=== PATIENT | female | born 1995 | race Two or more races ===

== ENCOUNTER 2024-06-08 05:40 | Day surgery (SDC) | payer OTHER, SELFPAY ==
[2024-06-07 15:03] VITALS: BMI 30.2
[2024-06-07 15:41] LABS: Basophils # (Auto) 0.1 Thou/mm3 (0.0-0.2); Basophils % (Auto) 1 % (0-2.5); Eosinophils # (Auto) 0.3 Thou/mm3 (0.0-0.5); Eosinophils % (Auto) 2 % (0-10); Hematocrit 36.2 % (36.0-46.0); Hemoglobin 11.6 g/dL (12.0-16.0); Immature Granulocytes % (Auto) 0 % (0-0); Immature Granulocytes Auto 0.03 Thou/mm3 (0.00-0.00); Lymphocytes # (Auto) 2.8 Thou/mm3 (1.0-4.8); Lymphocytes % (Auto) 28 % (10-50); Mean Corpuscular Hemoglobin 24.6 pg (25.0-35.0); Mean Corpuscular Volume 77 fL (80-100); Monocytes # (Auto) 0.6 Thou/mm3 (0.0-0.8); Monocytes % (Auto) 6 % (0-12); Neutrophils # (Auto) 6.5 Thou/mm3 (1.8-7.7); Neutrophils % (Auto) 63 % (37-80); Nucleated Red Blood Cell % 0 /100 WBC (0); Platelet Count 373 Thou/mm3 (140-440); RDW Standard Deviation 41.6 fL (36.4-46.3); Red Blood Count 4.72 Miln/mm3 (4.00-5.20); White Blood Count 10.3 Thou/mm3 (3.6-11.0)
[2024-06-07 15:51] LABS: HCG,Qualitative Serum Negative
[2024-06-07 15:57] LABS: HIV (1&2) Antibody Rapid Non-Reactive
[2024-06-07 16:43] LABS: Hepatitis A Antibody IgM Non Reactive (Non React); Hepatitis B Core Antibody IgM Non Reactive (Non React); Hepatitis B Surface Antigen Non Reactive (Non React); Hepatitis C Antibody Non Reactive (Non React)
[2024-06-08] VITALS (10 sets, daily range): BP systolic 97–107; BP diastolic 56–69; PULSE 66–84; RESP 13–20; TEMP 36.2–36.7; O2SAT 96–100; BMI 29.2
[2024-06-08] MEDS: RINGERS LACTATED 1000 ML 1,000 ML 20 ML IV (06:41)
--- NOTE | 2024-06-08 07:21 | CHAP ---
Prayed with patient before her procedure.
--- NOTE | 2024-06-08 08:36 | SUR.PHASEI ---
pt received from OR in recovery bay 1. pt asleep but responds to voice, breathing unlabored on oxymask 8l. v/s stable. pt dressing periapad cdi. report received Estrada LOPEZ and Demi JAMES.
--- NOTE | 2024-06-08 09:39 | SUR.PHASEII ---
pt able to tolerate oral fluids without difficulty swallowing or nasuea/vomiting.
--- NOTE | 2024-06-08 10:30 | SUR.PHASEII ---
pt awake and alert, breathing unlabored on room air. v/s stable. pt dressing peripad cdi. pt able to ambulate to wheelchair with steady gait. d/c instructions given with Robinson in room using casting and pasting supervisor GA, all questions answered. pt d/c via wheelchair with all belongings.
--- NOTE | 2024-06-09 08:47 | ESOP_ITS ---
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 General anesthesia was deemed to be adequate. A time-out was performed to confirm correct patient and correct procedure. The patient was then positioned on the operating room in the dorsolithotomy position. A bimanual examination was performed and the uterus was noted to be small, anteverted in size yet mobile. The cervix was visualized with the aid of a Distant. We performed endocervical currettage. With juan carlos matias. Local anesthesia with dilute Lidocaine with epinephrine was injected circumferentially around the cervix to aid in hemostasis. Utilizing 0 Vicryl we suture ligated the cervix at 3 and 9 o'clock positions to aid in decreased bleeding to ligate the cervical branch of the uterine arteries. Once the cervix was visualized to be pale, with a scalpel were able to circumferentially remove a cone specimen of the cervix, again prior to excising that cone, we placed a Hegar dilator to protect our margins. Once the cone specimen was removed. Minimal amount of bleeding was noted. We controlled that with ball electrocautery and munsol solution. We then deemed the procedure complete. Hemostasis was obtained. We removed the speculum as well as the Christine. Sponge, lap and instrument counts were correct x2. The patient was transferred to the recovery room in stable condition Estimated blood loss (ml): 5 Surgical staff Operation Date: 06/08/24 07:30 Case Staff FREELANCE MAKEUP ARTIST: JACOB. Diagnosis Problem List Completed Was Problem List Reviewed/Reconciled?: Yes
== END 2024-06-08 10:30 | disposition home or self-care (01) ==
PROVIDERS: PCP Family Medicine; Referring Provider Student in an Organized Health Care Education/Training Program; Visit Provider Student in an Organized Health Care Education/Training Program
PROC: 0UBC7ZZ Excision of Cervix, Via Natural or Artificial Opening (ICD-10-PCS; CPT 57520; principal; 2024-06-08 07:30)
DX: R87.613 High grade squamous intraepithelial lesion on cytologic smear of cervix (HGSIL) (principal)
CPT/HCPCS: 57522; 36415; 80074; 84703; 85025; 86703; 86850; 86900; 86901; A4217; A4649; J0131; J0690; J1100; J1885; J2250; J2371; J2405; J2704; J3010; J3490; J7120